=== PATIENT | female | born 1970 | race Caucasian/White ===

== ENCOUNTER 2022-09-30 14:05 | Outpatient (CLI) | payer OTHER | END 2022-09-30 23:59 | disposition critical access hospital (66) | LOC: EMS 14:05 | DX: R19.7 Diarrhea, unspecified (principal); R11.10 Vomiting, unspecified; R10.9 Unspecified abdominal pain | CPT/HCPCS: A0425; A0427 ==

== ENCOUNTER 2022-09-30 14:21 | Emergency (ER) | payer OTHER ==
[2022-09-30] MEDS ORDERED: SODIUM CHLORIDE 0.9% 1,000 ML IV STA (14:48)
[2022-09-30] MEDS ORDERED: ONDANSETRON 4 MG/2 ML VIAL IVP STA (14:49)
--- NOTE | 2022-09-30 14:49 | ED Physician Documentation ---
PD HPI ABD PAIN - Stated complaint Stated Complaint: V/D - Chief complaint Chief Complaint: Abd Pain - History obtained from History obtained from: Patient - History of Present Illness Quality: Cramping Location: All over / everywhere Improved by: No: Eating, Laying still, Vomiting, BM, Position, Meds, Other Worsened by: No: Eating, Moving, Breathing, Position, Palpation, Other Associated symptoms: Nausea, Diarrhea, Loss of appetite. No: Vomiting, Constipation Similar symptoms before: No: Diagnosis, No diagnosis, Work up / diagnostics, Treatment, Follow up, Has not had sx before, Other - Additional information Additional information: 52-year-old female presents with generalized abdominal pain that is cramping and spasming in nature, accompanied by nausea and poor p.o. intake for the last several days. Symptoms started 2 days ago, the evening prior she had eaten at [employer] and felt fine, and the next morning she woke up with the symptoms that progressed throughout the day. Symptoms are accompanied by watery non bloody d iarrhea. She has had pain intermittently since then, comes in waves and is quite severe when she has the pain. She has tried Pepcid without relief, no other medications. She has not had a fever or chills to her knowledge, no dysuria urgency or frequency. No history of abdominal surgeries. No recent antibiotic use or hospitalizations, no recent travel out of the country. No atypical food or water sources. Review of Systems Constitutional: reports: Reviewed and negative Throat: reports: Reviewed and negative Cardiac: reports: Reviewed and negative Respiratory: reports: Reviewed and negative GI: reports: Abdominal Pain, Abdominal Swelling, Nausea, Diarrhea. denies: Vomiting, Constipation : reports: Reviewed and negative Skin: reports: Reviewed and negative Musculoskeletal: reports: Reviewed and negative Neurologic: reports: Reviewed and negative Psychiatric: reports: Reviewed and negative Endocrine: reports: Reviewed and negative PD PAST MEDICAL HISTORY - Past Medical History Past Medical History: Yes Cardiovascular: Hypertension GI: GERD - Present Medications Home Medications: Ambulatory Orders Medication Instructions Recorded Confirmed Ciprofloxacin HCl [Cipro] 500 mg PO BID #10 tablet 09/30/22 HYDROcod/ACETAM 5/325 [[place] 5/325] 1 - 2 tablet PO Q6H PRN #10 tablet 09/30/22 Ondansetron Odt [Zofran] 4 mg TL Q8H PRN #6 tablet 09/30/22 - Allergies Allergies/Adverse Reactions: Allergies Allergy/AdvReac Type Severity Reaction Status Date / Time Sulfa (Sulfonamide Allergy Rash Verified 09/30/22 14:34 Antibiotics) PD ED PE NORMAL - Vitals Vital signs reviewed: Yes - General General: Alert and oriented X 3, No acute distress, Well developed/nourished - HEENT HEENT: Atraumatic, Moist mucous membranes, Pharynx benign - Neck Neck: Supple, no meningeal sign, No JVD - Cardiac Cardiac: RRR, No murmur, No gallop, No rub - Respiratory Respiratory: No respiratory distress, Clear bilaterally - Abdomen Abdomen: Normal bowel sounds, Soft, Non distended, Other (mild generalized ttp w/o guarding. No focal tenderness.) - Derm Derm: Normal color, Warm and dry, No rash - Extremities Extremities: No deformity, No tenderness to palpate, Normal ROM s pain, No edema, No calf tenderness / cord - Neuro Eye Opening: Spontaneous Motor: Obeys Commands Verbal: Oriented GCS Score: 15 Results - Vitals Vitals: Vital Signs - 24 hr 09/30/22 09/30/22 09/30/22 14:30 16:09 17:50 Temperature 36 C L Heart Rate 80 78 72 Respiratory 20 18 18 Rate Blood Pressure 153/96 H 126/86 H 120/77 O2 Saturation 100 96 98 Oxygen O2 Source Room air - Labs Labs: Laboratory Tests 09/30/22 09/30/22 09/30/22 14:59 14:59 15:09 WBC 11.3 H RBC 4.89 Hgb 14.5 Hct 43.4 MCV 88.8 MCH 29.7 MCHC 33.4 RDW 13.0 Plt Count 301 MPV 10.5 Neut # (Auto) 8.8 H Lymph # (Auto) 1.9 [place] # (Auto) 0.5 Eos # (Auto) 0.2 Baso # (Auto) 0.0 Absolute Nucleated RBC 0.00 Nucleated RBC % 0.0 Sodium 135 Potassium 3.4 L Chloride 101 Carbon Dioxide 29 Anion Gap 5.0 L BUN 9 Creatinine 0.6 Estimated GFR (MDRD) 104 Glucose 139 H Calcium 9.0 Total Bilirubin 0.5 AST 16 ALT 23 Alkaline Phosphatase 80 Total Protein 7.2 Albumin 4.2 Globulin 3.0 Albumin/Globulin Ratio 1.4 Lipase 28 Urine Color YELLOW Urine Clarity CLEAR Urine pH 7.0 Ur Specific [place] 1.010 Urine Protein NEGATIVE Urine Glucose (UA) NEGATIVE Urine Ketones NEGATIVE Urine Occult Blood NEGATIVE Urine Nitrite NEGATIVE Urine Bilirubin NEGATIVE Urine Urobilinogen 0.2 (NORMAL) Ur Leukocyte Esterase SMALL H Urine RBC 0-5 Urine WBC 6-10 H Ur Epithelial Cells RARE Renal Tubular Ur Squamous Epith Cells FEW Squamous Urine Bacteria Few Ur Microscopic Review INDICATED Urine Culture Comments INDICATED - Rads (name of study) No standard instances Relevant Findings:: Final report received PD Medical Decision Making - ED course Complexity details: reviewed results, re-evaluated patient, considered differential, d/w patient, d/w insurance consultant ( ) ED course: 52-year-old female presented with generalized abdominal pain For the past 2 days as described in HPI. On evaluation here, the patient has stable vital signs, she is nontoxic-appearing, she has no focal abdominal pain but some generalized tenderness without guarding on physical exam. Her bowel tones are active. We obtained labs which are generally reassuring, she has been very mild leukocytosis, otherwise stable CBC and CMP. Her urinalysis is suggestive of possible infection though I think this is not likely the cause of her symptoms as she has No dysuria or other urinary symptoms. Given her persistent discomfort he said despite IV fluids, Toradol and Zofran, I did obtain a CT scan to evaluate for possible diverticulitis or other causes of her symptoms and this showed some nonspecific inflammation, colitis or enteritis most likely. I discussed with patient that she should adhere to a clear liquid diet today and we will treat supportively with as needed Zofran, hydrocodone or ibuprofen. I am going to give her short course of Cipro to cover UTI and possible bacterial enteritis so I think this is less likely. Anticipate symptom improvement in the next 1 to 2 days and discussed return precautions if worsening symptoms, she developed a fever, was not tolerating p.o., and increased abdominal pain or other new concerns. Patient states understanding and was discharged home after receiving first dose of Cipro and a dose of morphine here with improvement in her symptoms. Departure - Departure Disposition: 01 Home, Self Care Clinical Impression: Enteritis Urinary tract infection Qualifiers: Urinary tract infection type: acute cystitis Hematuria presence: without hematuria Qualified Code(s): N30.00 - Acute cystitis without hematuria Condition: Good Instructions: ED Food Poison Or Gastroenteritis, ED UTI Cystitis Female Prescriptions: Ciprofloxacin HCl [Cipro] 500 mg PO BID #10 tablet HYDROcod/ACETAM 5/325 [[place] 5/325] 1 - 2 tablet PO Q6H PRN #10 tablet PRN Reason: Pain Ondansetron Odt [Zofran] 4 mg TL Q8H PRN #6 tablet PRN Reason: Nausea / Vomiting Comments: As we discussed, your CT scan looks like you have some inflammation in the colon likely due to enteritis or "food poisoning." Usually this resolves on its own in 2-3 days. I am going to give you a short course of antibiotics however given the duration of your symptoms and a possible urine infection as well. I have prescribed nausea and pain medication as well to use only if absolutely necessary. Usually tylenol or ibuprofen is sufficient. If your symptoms worsen, or you develop fever or other new concerns, return to the ER. Forms: PCP List Discharge Date/Time: 09/30/22 17:56
[2022-09-30 15:05] LABS: BASOPHILS % (AUTO) 0.3 %; EOSINOPHILS # (AUTO) 0.2 10^3/uL (0.0-0.7); EOSINOPHILS % (AUTO) 1.3 %; HCT - HEMATOCRIT 43.4 % (37.0-47.0); HGB - HEMOGLOBIN 14.5 g/dL (12.0-16.0); LYMPHOCYTES # (AUTO) 1.9 10^3/uL (1.5-3.5); LYMPHOCYTES % (AUTO) 16.7 %; MEAN CORPUSCULAR HEMOGLOBIN 29.7 pg (27.0-31.0); MEAN CORPUSCULAR HGB CONC 33.4 g/dL (32.0-36.0); MEAN CORPUSCULAR VOLUME 88.8 fL (81.0-99.0); MEAN PLATELET VOLUME 10.5 fL (7.9-10.8); MONOCYTES # (AUTO) 0.5 10^3/uL (0.0-1.0); MONOCYTES % (AUTO) 4.1 %; NEUTROPHILS # (AUTO) 8.8 10^3/uL (1.5-6.6); NEUTROPHILS % (AUTO) 77.3 %; PLT - PLATELET COUNT 301 10^3/uL (130-450); RED BLOOD COUNT 4.89 10^6/uL (4.20-5.40); WHITE BLOOD COUNT 11.3 x10^3/uL (4.8-10.8)
[2022-09-30 15:17] LABS: ALBUMIN 4.2 g/dL (3.2-5.5); ALBUMIN/GLOBULIN RATIO 1.4 (1.0-2.2); BILIRUBIN,TOTAL 0.5 mg/dL (0.2-1.0); CREATININE 0.6 mg/dL (0.6-1.3); POTASSIUM 3.4 mmol/L (3.5-4.5); TOTAL PROTEIN 7.2 g/dL (6.4-8.9)
[2022-09-30 15:20] LABS: BILIRUBIN,URINE NEGATIVE (NEGATIVE); GLUCOSE, URINE (UA) NEGATIVE (NEGATIVE); KETONES,URINE (UA) NEGATIVE (NEGATIVE); LEUKOCYTE ESTERASE, URINE SMALL (NEGATIVE); NITRITE,URINE NEGATIVE (NEGATIVE); OCCULT BLOOD,URINE NEGATIVE (NEGATIVE); PROTEIN,URINE NEGATIVE (NEGATIVE); UROBILINOGEN,URINE 0.2 (NORMAL) E.U./dL (NORMAL)
[2022-09-30 15:23] LABS: CLARITY,URINE CLEAR (CLEAR)
[2022-09-30 15:32] LABS: BACTERIA,URINE Few /HPF (None Seen); EPITHELIAL CELLS,UR RARE Renal Tubular /HPF (<= Few); RBC,URINE 0-5 /HPF (0-5); SQUAMOUS EPITHELIAL CELL,UR FEW Squamous (<= Few)
[2022-09-30] MEDS ORDERED: KETOROLAC 30 MG/ML VIAL IVP STA (15:34)
[2022-09-30] MEDS ORDERED: iohexoL-300 100 ML VIAL IVP ONE (16:45)
--- NOTE | 2022-09-30 16:54 | CT Report ---
PROCEDURE: ABDOMEN/PELVIS W INDICATIONS: abd pain/cramp/bloat, concern for colitis or diver CONTRAST: 100ml omni 300 TECHNIQUE: After the administration of IV contrast, 5 mm thick sections acquired from the diaphragms to the symp hysis. 5 mm thick coronal and sagittal reformats were acquired. For radiation dose reduction, the f ollowing was used: automated exposure control, adjustment of mA and/or kV according to patient size. COMPARISON: None. FINDINGS: Image quality: This study is limited by body habitus. Lung bases and heart: Unremarkable. Liver: No solid mass. The liver is enlarged and demonstrates diffuse fatty infiltration. Gallbladder and biliary tree: There are gallstones are seen. No additional CT findings of cholecystit is are seen. Spleen: No splenomegaly. Pancreas: No pancreatic ductal dilation. Adrenals: No adrenal nodule. Kidneys and ureters: No hydronephrosis. No renal cystic lesion which requires follow up. No solid mas s. Bowel and peritoneum: Several loops of abnormally thickened and hyperenhancing small bowel can be see n within the right lower quadrant. Mild adjacent free fluid can be seen. No definite free air can be seen. No abscess is identified. There is mild wall thickening seen involving the descending colon. Along the anterior aspect of the right lower quadrant, there is a normal-appearing appendix seen, as on series 2 image 64, measuring 5 mm in caliber, without specific surrounding inflammatory change. There is a small amount of ascites seen adjacent to the liver. Lymph nodes: No central or retroperitoneal adenopathy. Vessels: No infrarenal aortic aneurysm. PELVIS Reproductive organs: The uterus demonstrates an unremarkable appearance for age. No adnexal masses ar e seen. Bladder: No abnormal wall thickening, accounting for underdistension. Pelvic lymph nodes: No pelvic adenopathy by size criteria. Bones: No aggressive osseous abnormality. Focal lower lumbar spine degenerative changes are seen. Other: No significant ventral or inguinal hernia. IMPRESSION: Several loops of abnormally prominent and thickened small bowel can be seen within the right lower qu adrant, with a mild degree of involvement within the ascending colon. Please correlate with potential infectious and inflammatory causes, including colitis. There is a mild amount of free fluid seen within the right lower quadrant, and also adjacent to the l iver, yet without tami findings of perforation or abscess on these images. A normal appendix is seen. Additional findings: Enlarged, fatty liver Gallstones Focal lower lumbar spine degenerative change Reviewed by: Dean Martinez MD on 09/30/2022 3:53 PM AKDT Approved by: Dean Martinez MD on 09/30/2022 3:53 PM AKMARS Station ID: [id number]
[2022-09-30] MEDS ORDERED: MORPHINE 2 MG/ML CARPUJECT IVP STA (17:26)
[2022-09-30] MEDS ORDERED: CIPROFLOXACIN 250 MG TABLET PO STA (17:29)
[2022-09-30 17:54] VITALS: BP 120/77
== END 2022-09-30 17:56 | disposition home or self-care (01) ==
LOC: ED 14:21
DX: K52.9 Noninfective gastroenteritis and colitis, unspecified (principal); N30.00 Acute cystitis without hematuria
CPT/HCPCS: 36415; 74177; 80053; 81001; 83690; 85025; 87086; 96374; 96375; 99284; A9270; Q9967; 81003

== ENCOUNTER 2022-10-29 10:45 | Emergency (ER) | payer OTHER ==
[2022-10-29 11:19] LABS: BILIRUBIN,URINE NEGATIVE (NEGATIVE); GLUCOSE, URINE (UA) NEGATIVE (NEGATIVE); KETONES,URINE (UA) NEGATIVE (NEGATIVE); LEUKOCYTE ESTERASE, URINE SMALL (NEGATIVE); NITRITE,URINE NEGATIVE (NEGATIVE); OCCULT BLOOD,URINE NEGATIVE (NEGATIVE); PH,URINE 6.5 PH (5.0-7.5); PROTEIN,URINE NEGATIVE (NEGATIVE); UROBILINOGEN,URINE 0.2 (NORMAL) E.U./dL (NORMAL)
[2022-10-29 11:21] LABS: CLARITY,URINE CLEAR (CLEAR)
[2022-10-29 11:29] LABS: BACTERIA,URINE Rare /HPF (None Seen); MUCUS,URINE Marked Strands; RBC,URINE 0-5 /HPF (0-5); SQUAMOUS EPITHELIAL CELL,UR MOD Squamous (<= Few)
[2022-10-29 11:38] LABS: BASOPHILS % (AUTO) 0.5 %; EOSINOPHILS # (AUTO) 0.1 10^3/uL (0.0-0.7); EOSINOPHILS % (AUTO) 1.9 %; HCT - HEMATOCRIT 41.5 % (37.0-47.0); LYMPHOCYTES # (AUTO) 2.6 10^3/uL (1.5-3.5); LYMPHOCYTES % (AUTO) 34.6 %; MEAN CORPUSCULAR HGB CONC 33.7 g/dL (32.0-36.0); MEAN CORPUSCULAR VOLUME 89.1 fL (81.0-99.0); MEAN PLATELET VOLUME 10.3 fL (7.9-10.8); MONOCYTES # (AUTO) 0.4 10^3/uL (0.0-1.0); MONOCYTES % (AUTO) 5.7 %; NEUTROPHILS # (AUTO) 4.2 10^3/uL (1.5-6.6); NEUTROPHILS % (AUTO) 57.2 %; PLT - PLATELET COUNT 299 10^3/uL (130-450); RED BLOOD COUNT 4.66 10^6/uL (4.20-5.40); RED CELL DISTRIBUTION WIDTH 13.4 % (12.0-15.0); WHITE BLOOD COUNT 7.4 x10^3/uL (4.8-10.8)
[2022-10-29 11:50] LABS: ALBUMIN 4.4 g/dL (3.2-5.5); ALBUMIN/GLOBULIN RATIO 1.5 (1.0-2.2); BILIRUBIN,TOTAL 0.6 mg/dL (0.2-1.0); CALCIUM 9.7 mg/dL (8.5-10.3); CREATININE 0.6 mg/dL (0.6-1.3); TOTAL PROTEIN 7.3 g/dL (6.4-8.9)
[2022-10-29] MEDS ORDERED: iohexoL-300 100 ML VIAL IVP ONE (13:11)
--- NOTE | 2022-10-29 13:37 | CT Report ---
PROCEDURE: ABDOMEN/PELVIS W INDICATIONS: RLQ pain x 4 days CONTRAST: 100ml omni 300 TECHNIQUE: After the administration of IV contrast, 5 mm thick sections acquired from the diaphragms to the symp hysis. 5 mm thick coronal and sagittal reformats were acquired. For radiation dose reduction, the f ollowing was used: automated exposure control, adjustment of mA and/or kV according to patient size. COMPARISON: 09/30/2022 FINDINGS: Image quality: This study is limited by body habitus. Lung bases and heart: Unremarkable. Liver: No solid mass. Diffuse fatty liver infiltration can be seen. Gallbladder and biliary tree: Layering gallstones are seen within the gallbladder. No additional CT f indings of cholecystitis can be seen. Spleen: No splenomegaly. Pancreas: No pancreatic ductal dilation. Adrenals: No adrenal nodule. Kidneys and ureters: No hydronephrosis. No renal cystic lesion which requires follow up. No solid mas s. Bowel and peritoneum: In this patient with this given history, scrutiny is given to the appendix. The appendix is well-seen and demonstrates no significant abnormality. The appendix contains gas. No luisa rounding inflammatory change can be seen. There is focal wall thickening seen involving the sigmoid colon, with some mucosal deposition of fat. Minimal irregularity can be seen of the terminal ileum, No dilated loops of small bowel can be seen. The more distal colon is unremarkable. The stomach is relatively decompressed at the time of this study, limiting its evaluation. Lymph nodes: No central or retroperitoneal adenopathy. Vessels: No infrarenal aortic aneurysm. PELVIS Reproductive organs: The uterus demonstrates an unremarkable appearance for age. No adnexal masses ar e seen. Bladder: No abnormal wall thickening, accounting for underdistension. Pelvic lymph nodes: No pelvic adenopathy by size criteria. Bones: No aggressive osseous abnormality. Focal degenerative change is seen involving L4-L5 and L5-S1 . Milder degenerative changes are seen elsewhere. Other: No significant ventral or inguinal hernia. IMPRESSION: Normal appendix. Abnormal cecum and terminal ileum, with fatty deposition seen within the cecum. Please consider Crohn 's disease. The previously seen thickened, abnormal distal small bowel is no longer seen. No free fluid is now seen. Additional findings: Fatty liver infiltration Gallstones Focal L4-L5 and L5-S1 degenerative change. Reviewed by: Dean Martinez MD on 10/29/2022 12:35 PM AKMARS Approved by: Dean Martinez MD on 10/29/2022 12:35 PM ARLEN Station ID: [id number]
[2022-10-29] MEDS ORDERED: methylPREDNISolone SUCCINATE 125 MG/2 ML VIAL IVP STA (13:49)
--- NOTE | 2022-10-29 14:02 | ED Physician Documentation ---
PD HPI ABD PAIN - Stated complaint Stated Complaint: RT SIDE PX - Chief complaint Chief Complaint: Abd Pain - History obtained from History obtained from: Patient - History of Present Illness Timing - onset: How many days ago (4) Timing - duration: Days (4) Timing - details: Gradual onset Pain level max: 5 Pain level now: 5 Quality: Aching, Pain Location: RUQ, RLQ Radiation: Right flank Improved by: Other (nothing) Worsened by: Moving Associated symptoms: No: Fever, Nausea, Vomiting, Hematemesis, Diarrhea, Constipation, Melena, Hematochezia, Dysuria, Hematuria, Chest pain - Additional information Additional information: Patient is a 52-year-old female presents to the emergency department with right-sided abdominal pain and fatigue for the past 4 days. She states that she has had increased belching as well. Decreased appetite. No vomiting, diarrhea or constipation. She states that she has a history of IBS and states that her bowel movements have not been abnormal. No blood in the stool. No fevers. No chills. No recent travel. No recent antibiotics. She had a small bowel enteritis several weeks ago that she did recover from. Review of Systems Constitutional: denies: Fever, Chills GI: denies: Vomiting, Diarrhea, Hematemesis, Bloody / black stool : denies: Dysuria, Frequency, Hesitancy Skin: denies: Rash Musculoskeletal: denies: Neck pain, Back pain Neurologic: denies: Headache PD PAST MEDICAL HISTORY - Past Medical History Cardiovascular: Hypertension GI: GERD, Other : Kidney stones Psych: Anxiety, Post traumatic stress disorder Other Past Medical History: IBS - Past Surgical History Past Surgical History: Yes /ORGANIZATIONAL CONSULTANT: section - Present Medications Home Medications: Ambulatory Orders Medication Instructions Recorded Confirmed Rosuvastatin Calcium [Crestor] 5 mg PO DAILY 10/29/22 10/29/22 dilTIAZem HCL [Diltiazem 24Hr ER 120 mg PO DAILY 10/29/22 10/29/22 (Xr)] hydroCHLOROthiazide [Hydrodiuril] 25 mg PO ONCE 10/29/22 10/29/22 predniSONE [Deltasone] 10 mg PO [id number] #42 tab 10/29/22 - Allergies Allergies/Adverse Reactions: Allergies Allergy/AdvReac Type Severity Reaction Status Date / Time Sulfa (Sulfonamide Allergy Rash Verified 09/30/22 14:34 Antibiotics) - Social History Does the pt smoke?: No Smoking Status: Never smoker Does the pt drink ETOH?: No Does the pt have substance abuse?: No PD ED PE NORMAL - Vitals Vital signs reviewed: Yes - General General: Alert and oriented X 3, No acute distress - HEENT HEENT: Moist mucous membranes - Neck Neck: Supple, no meningeal sign - Cardiac Cardiac: RRR, Strong equal pulses - Respiratory Respiratory: No respiratory distress, Clear bilaterally - Abdomen Abdomen: Soft, Non distended, Other (Mild diffuse tenderness to palpation right side of the abdomen, right lower quadrant, greater than right upper quadrant. Negative Hanks sign. No peritoneal signs.) - Back Back: No CVA TTP, No spinal TTP - Derm Derm: Warm and dry - Extremities Extremities: No edema, No calf tenderness / cord - Neuro Neuro: Alert and oriented X 3 - Psych Psych: Normal mood, Normal affect Results - Vitals Vitals: Vital Signs - 24 hr 10/29/22 10/29/22 10/29/22 10:50 12:14 14:14 Temperature 37.0 C Heart Rate 102 H 83 77 Respiratory 22 18 18 Rate Blood Pressure 145/84 H 135/95 H 155/99 H O2 Saturation 99 98 100 Oxygen O2 Source Room air - Labs Labs: Laboratory Tests 10/29/22 10/29/22 10/29/22 11:14 11:27 11:27 WBC 7.4 RBC 4.66 Hgb 14.0 Hct 41.5 MCV 89.1 MCH 30.0 MCHC 33.7 RDW 13.4 Plt Count 299 MPV 10.3 Neut # (Auto) 4.2 Lymph # (Auto) 2.6 [place] # (Auto) 0.4 Eos # (Auto) 0.1 Baso # (Auto) 0.0 Absolute Nucleated RBC 0.00 Nucleated RBC % 0.0 Sodium 138 Potassium 4.0 Chloride 102 Carbon Dioxide 29 Anion Gap 7.0 BUN 9 Creatinine 0.6 Estimated GFR (MDRD) 104 Glucose 115 H Calcium 9.7 Total Bilirubin 0.6 AST 24 ALT 29 Alkaline Phosphatase 87 Total Protein 7.3 Albumin 4.4 Globulin 2.9 Albumin/Globulin Ratio 1.5 Lipase 44 Urine Color YELLOW Urine Clarity CLEAR Urine pH 6.5 Ur Specific [place] 1.015 Urine Protein NEGATIVE Urine Glucose (UA) NEGATIVE Urine Ketones NEGATIVE Urine Occult Blood NEGATIVE Urine Nitrite NEGATIVE Urine Bilirubin NEGATIVE Urine Urobilinogen 0.2 (NORMAL) Ur Leukocyte Esterase SMALL H Urine RBC 0-5 Urine WBC 4-5 Ur Squamous Epith Cells MOD Squamous H Urine Bacteria Rare Urine Mucus Marked Strands Ur Microscopic Review INDICATED Urine Culture Comments NOT INDICATED - Rads (name of study) CT abdomen and pelvis Relevant Findings:: Final report received, See rad report PD Medical Decision Making - ED course Complexity details: reviewed results, re-evaluated patient, considered differential, d/w patient ED course: No significant laboratory abnormalities. White blood cell count is normal. Urinalysis appears contaminated and does not have symptoms consistent with UTI. CT scan concerning for potential Crohn's disease. No indication for antibiotics. No fevers. No chills. We will trial on a short course of steroids to see if this improves her symptoms. No evidence of bowel obstruction. Abdomen is soft, nontender nondistended on serial exam. We will have her follow-up with her PCP for further care. Patient counseled regarding signs and symptoms for which I believe and urgent re-evaluation would be necessary. Patient with good understanding of and agreement to plan and is comfortable going home at this time This document was made in part using voice recognition software. While efforts are made to proofread this document, sound alike and grammatical errors may occur. Departure - Departure Disposition: 01 Home, Self Care Clinical Impression: Abdominal pain Qualifiers: Abdominal location: unspecified location Qualified Code(s): R10.9 - Unspecified abdominal pain Condition: Good Instructions: ED Abdominal Pain Female Non-Specific Abdominal Pain, ED Inflam Bowel Disease Crohn Follow-Up: Erika Longoria ARNP [Primary Care Provider] - Prescriptions: predniSONE [Deltasone] 10 mg PO [id number] #42 tab Comments: Your CT scan is concerning for possible Crohn's disease. We will trial you on a course of steroids to see if this helps your symptoms. You should be referred to a attendance secretary for further care, you will likely need a colonoscopy. I have included a copy of your CT scan below. [facility] to [facility] [place]. PROCEDURE: ABDOMEN/PELVIS W INDICATIONS: RLQ pain x 4 days CONTRAST: 100ml omni 300 TECHNIQUE: After the administration of IV contrast, 5 mm thick sections acquired from the diaphragms to the symphysis. 5 mm thick coronal and sagittal reformats were acquired. For radiation dose reduction, the following was used: automated exposure control, adjustment of mA and/or kV according to patient size. COMPARISON: 09/30/2022 FINDINGS: Image quality: This study is limited by body habitus. Lung bases and heart: Unremarkable. Liver: No solid mass. Diffuse fatty liver infiltration can be seen. Gallbladder and biliary tree: Layering gallstones are seen within the gallbladder. No additional CT findings of cholecystitis can be seen. Spleen: No splenomegaly. Pancreas: No pancreatic ductal dilation. Adrenals: No adrenal nodule. Kidneys and ureters: No hydronephrosis. No renal cystic lesion which requires f ollow up. No solid mass. Bowel and peritoneum: In this patient with this given history, scrutiny is given to the appendix. The appendix is well-seen and demonstrates no significant abnormality. The appendix contains gas. No surrounding inflammatory change can be seen. There is focal wall thickening seen involving the sigmoid colon, with some mucosal deposition of fat. Minimal irregularity can be seen of the terminal ileum, No dilated loops of small bowel can be seen. The more distal colon is unremarkable. The stomach is relatively decompressed at the time of this study, limiting its e valuation. Lymph nodes: No central or retroperitoneal adenopathy. Vessels: No infrarenal aortic aneurysm. PELVIS Reproductive organs: The uterus demonstrates an unremarkable appearance for age. No adnexal masses are seen. Bladder: No abnormal wall thickening, accounting for underdistension. Pelvic lymph nodes: No pelvic adenopathy by size criteria. Bones: No aggressive osseous abnormality. Focal degenerative change is seen involving L4-L5 and L5- S1. Milder degenerative changes are seen elsewhere. Other: No significant ventral or inguinal hernia. IMPRESSION: Normal appendix. Abnormal cecum and terminal ileum, with fatty deposition seen within the cecum. Please consider Crohn's disease. The previously seen thickened, abnormal distal small bowel is no longer seen. No free fluid is now seen. Additional findings: Fatty liver infiltration Gallstones Focal L4-L5 and L5-S1 degenerative change. Forms: PCP List Discharge Date/Time: 10/29/22 14:15
[2022-10-29 14:20] VITALS: BP 155/99; O2SAT 100
== END 2022-10-29 14:15 | disposition home or self-care (01) ==
LOC: ED 10:45
DX: R10.11 Right upper quadrant pain (principal); R10.31 Right lower quadrant pain; I10 Essential (primary) hypertension; Z79.899 Other long term (current) drug therapy
CPT/HCPCS: 36415; 74177; 80053; 81001; 83690; 85025; 96374; 99283; 99284; Q9967; 81003; 87086

== ENCOUNTER 2023-09-13 08:22 | Outpatient (CLI) | payer BC ==
[2023-09-13 09:05] LABS: CHOLESTEROL 242 mg/dL; HDL CHOLESTEROL 60 mg/dL; LDL CHOLESTEROL,CALCULATED 121 mg/dL; TRIGLYCERIDES 305 mg/dL; VLDL CHOLESTEROL 61 mg/dL
== END 2023-09-13 08:23 | disposition home or self-care (01) ==
LOC: LAB 08:22
PROVIDERS: ATTEND Nurse Practitioner Family
DX: E78.5 Hyperlipidemia, unspecified (principal)
CPT/HCPCS: 36415; 80061; 83721

== ENCOUNTER 2023-10-10 18:54 | Outpatient (CLI) | payer BC ==
--- NOTE | 2023-10-11 23:30 | Ultrasound Report ---
PROCEDURE: Pelvic w/Transvaginal INDICATIONS: SBN CERVIX FINDINGS TECHNIQUE: Transabdominal/transvaginal ultrasound of the pelvis was obtained. Endovaginal scanning wa s necessary due to incomplete visualization of the adnexal and endometrial structures by transabdomin al scanning. COMPARISON: None. FINDINGS: Uterine size: Uterus measures 7.6 x 3.6 x 4.9 cm, and is anteverted. Myometrium: The myometrium is heterogenous Endometrium: The endometrium measures 4.2 mm in combined thickness. Right ovary: The right ovary measures 1.4 x 1.1 x 0.9 cm. Calculated ovarian volume 0.8 cc. Left ovary: Nonvisualized Other: No pathologic free abdominal or pelvic fluid. IMPRESSION: Nonvisualized left ovary. Otherwise unremarkable. Reviewed by: Paul Trujillo MD on 10/11/2023 10:28 PM ARLEN Approved by: Paul Trujillo MD on 10/11/2023 10:28 PM AKMARS Station ID: [id number]
== END 2023-10-10 18:55 | disposition home or self-care (01) ==
LOC: DI 18:54
PROVIDERS: ATTEND Nurse Practitioner Family
DX: R87.616 Satisfactory cervical smear but lacking transformation zone (principal); E66.01 Morbid (severe) obesity due to excess calories; Z78.0 Asymptomatic menopausal state; Z79.890 Hormone replacement therapy

== ENCOUNTER 2023-10-25 08:55 | Outpatient (CLI) | payer BC ==
--- NOTE | 2023-10-31 11:36 | Mammography Report ---
BILATERAL DIGITAL SCREENING MAMMOGRAM 3D/2D: 10/25/2023 CLINICAL: Routine screening. Additional films were requested but not obtained. Both breasts are heterogeneously dense, which may obscure small masses (category c / 51-75% glandular tissue). No significant masses, calcifications, or other findings are seen in either breast. IMPRESSION: NEGATIVE There is no mammographic evidence of malignancy. A 1 year screening mammogram is recommended. Based on the Tyrer Cuzick model (a risk assessment model) the patient's lifetime risk is 12.6% and he r 10 year risk is 3.9%. According to the ACR, ACS, and NCCN guidelines, an annual breast MRI exam marie ng with mammogram is recommended if the patient's lifetime risk is 20% or greater. This exam was interpreted at Station ID: [id number]. NOTE: For mammograms, a report in lay terms will be sent to the patient. Approximately 15% of breast malignancies will not be visualized mammographically. In the management of a palpable breast mass, a negative mammogram must not discourage biopsy of a clinically suspicious lesion. Electronically Signed By: Momo Rivera M.D. [facility] [place]/shaji:10/30/2023 11:25:44 letter sent: No_Letter ACR BI-RADS Category 1: Negative 3341F PARENCHYMAL PATTERN: (D) - The breast(s) demonstrate(s) heterogeneously dense fibroglandular parenchy ma. BI-RADS CATEGORY: (1) - 1 RECOMMENDATION: (ANNUAL) - Recommend routine annual screening mammography. [id number] 1 year screening LATERALITY: (B)
== END 2023-10-25 08:56 | disposition home or self-care (01) ==
LOC: DI 08:55
DX: Z12.31 Encounter for screening mammogram for malignant neoplasm of breast (principal); R92.333 Mammographic heterogeneous density, bilateral breasts